=== PATIENT | male | born 1960 | race African-American/Black ===

== ENCOUNTER 2022-02-20 14:48 | Emergency (ER) | payer SELFPAY ==
[2022-02-20] MEDS ORDERED: Morphine 4 MG/ML VIAL ONE (15:21)
[2022-02-20 18:20] LABS: Bilirubin Neg (Negative); Blood, Urine Negative (Negative); Clarity Clear (Clear); Glucose, Urine (Dipstick) Normal (Negative); Ketone, Urine Negative (Negative); Leukocyte 25 (Negative); Nitrite Negative (Negative); Protein, Urine (Dipstick) 30 mg/dl (Neg-Trace)
[2022-02-20 18:31] LABS: Bacteria/HPF 2+ HPF (None Seen); RBC/HPF 0-3 HPF (0-3); Squamous Epithelial 0-3 HPF (0-3)
[2022-02-20 18:32] LABS: Mucous/LPF 3+ LPF (<2+)
== END 2022-02-20 18:05 | disposition home or self-care (01) ==
LOC: CSHERS 14:48
DX: N43.3 Hydrocele, unspecified (principal); E78.5 Hyperlipidemia, unspecified; I10 Essential (primary) hypertension; F17.210 Nicotine dependence, cigarettes, uncomplicated; Z79.899 Other long term (current) drug therapy
CPT/HCPCS: 76870; 81003; 81015; 93976; 96374; J2270